=== PATIENT | male | born 1950 | race Caucasian/White ===

== ENCOUNTER 2018-02-05 03:42 | Emergency (ER) | payer OTHER ==
[~2018-02-05] VITALS: Ht 170.2 cm; Wt 74.8 kg
[2018-02-05 03:49] VITALS: Ht 170.2 cm; Wt 74.8 kg
[2018-02-05 04:20] VITALS: BP 140/74
== END 2018-02-05 04:20 | disposition home or self-care (01) ==
LOC: ED 03:42
DX: L50.9 Urticaria, unspecified (principal); I10 Essential (primary) hypertension
CPT/HCPCS: J1200; J2930

== ENCOUNTER 2018-06-05 05:59 | Emergency (ER) | payer OTHER ==
[~2018-06-05] VITALS: Ht 165.1 cm; Wt 73.9 kg
[2018-06-05 06:05] VITALS: Ht 165.1 cm; Wt 73.9 kg
[2018-06-05 06:53] LABS: BASOPHIL % 0.6 % (0-2); PLATELET COUNT 254 x10^3mcL (130-400); RED CELL DISTRIBUTION WIDTH 13.9 % (11.5-14.5)
[2018-06-05 07:09] LABS: CALCIUM 9.5 mg/dL (8.5-10.1); CARBON DIOXIDE 29.2 mmol/L (21-32); CHLORIDE SERUM 102 mmol/L (98-107); GFR1 > 60 mL/min; GLUCOSE SERUM 101 mg/dL (74-106); POTASSIUM SERUM 4.1 mmol/L (3.5-5.1); SODIUM SERUM 137 mmol/L (136-145)
[2018-06-05 07:14] LABS: ALKALINE PHOSPHATASE 108 U/L (46-116); ALT/SGPT 23 U/L (16-63); AMYLASE 94 U/L (25-115); AST/SGOT 16 U/L (15-37); BILIRUBIN TOTAL 0.89 mg/dL (0.20-1.00); CHOLESTEROL 212 mg/dL (<200); HDL CHOLESTEROL 59 mg/dL (40-60); LIPASE 159 IU/L (73-393); TOTAL PROTEIN, SERUM 8.3 g/dL (6.4-8.2)
[2018-06-05 07:45] LABS: UA SPECIFIC GRAVITY 1.015 (1.005-1.035); microscopic required? YES; urine erythrocyte 1+ (NEGATIVE)
[2018-06-05 07:51] LABS: AMPHETAMINE QUAL UR NONE DETECTED (See below)
[2018-06-05 09:20] VITALS: BP 131/78
== END 2018-06-05 09:20 | disposition home or self-care (01) ==
LOC: ED 05:59
PROVIDERS: Emergency Medicine
DX: J98.01 Acute bronchospasm (principal); I10 Essential (primary) hypertension; E78.00 Pure hypercholesterolemia, unspecified; Z98.890 Other specified postprocedural states
CPT/HCPCS: 36600; 83880; 87804; J2930; J7613; J7644

== ENCOUNTER 2019-09-11 21:57 | Emergency (ER) | payer OTHER ==
[~2019-09-11] VITALS: Ht 170.2 cm; Wt 77.1 kg
[2019-09-11 22:00] VITALS: Ht 170.2 cm; Wt 77.1 kg
[2019-09-12 01:10] VITALS: BP 123/65
== END 2019-09-12 01:10 | disposition home or self-care (01) ==
LOC: ED 21:57
DX: G51.0 Bell's palsy (principal); H10.13 Acute atopic conjunctivitis, bilateral; I10 Essential (primary) hypertension

== ENCOUNTER 2019-10-14 01:31 | Emergency (ER) | payer OTHER ==
[~2019-10-14] VITALS: Ht 170.2 cm; Wt 76.3 kg
[2019-10-14 01:41] VITALS: Ht 170.2 cm; Wt 76.3 kg
[2019-10-14 02:48] VITALS: BP 133/83
== END 2019-10-14 02:48 | disposition home or self-care (01) ==
LOC: ED 01:31
DX: L03.113 Cellulitis of right upper limb (principal)
CPT/HCPCS: J0696; J1885; Q0092

== ENCOUNTER 2019-11-07 16:21 | Emergency (ER) | payer OTHER ==
[~2019-11-07] VITALS: Ht 170.2 cm; Wt 77.6 kg
[2019-11-07 16:30] VITALS: Ht 170.2 cm; Wt 77.6 kg
[2019-11-07 18:11] VITALS: BP 142/72
== END 2019-11-07 17:45 | disposition home or self-care (01) ==
LOC: ED 16:21
DX: L02.413 Cutaneous abscess of right upper limb (principal); I10 Essential (primary) hypertension; Z88.8 Allergy status to other drugs, medicaments and biological substances; R42 Dizziness and giddiness; Z98.890 Other specified postprocedural states
CPT/HCPCS: 82962; J2001

== ENCOUNTER 2019-11-09 18:23 | Emergency (ER) | payer OTHER ==
[~2019-11-09] VITALS: Ht 172.7 cm; Wt 80.3 kg
[2019-11-09 18:28] VITALS: Ht 172.7 cm; Wt 80.3 kg
[2019-11-09 19:10] VITALS: BP 136/75
== END 2019-11-09 19:10 | disposition home or self-care (01) ==
LOC: ED 18:23
DX: Z48.00 Encounter for change or removal of nonsurgical wound dressing (principal); I10 Essential (primary) hypertension; Z88.8 Allergy status to other drugs, medicaments and biological substances